=== PATIENT | male | born 1985 | race American Indian/Alaskan Native ===

== ENCOUNTER 2021-02-21 15:15 | Emergency (ER) | payer SELFPAY ==
--- OUTSIDE RECORDS SUMMARY | 2021-02-21 15:19 | XMS REPORT | Continuity of Care Document ---
:1985 Author Organization [facility] t Address [address] [place] [address] Care Team Providers Name Role Phone Unavailable Unavailable Unavailable Problems This patient has no known problems. Allergies, Adverse Reactions, Alerts This patient has no known allergies or adverse reactions. Medications This patient has no known medications. Procedures This patient has no known procedures. Results This patient has no known results.
[2021-02-21 15:59] LABS: Absolute Lymphocytes (CBC) 1.1 K/uL (0.7-4.9); Basophils % 0.8 % (0-1.3); Hematocrit 46.6 % (39.6-49.0); Lymphocytes % 25.3 % (15.3-44.8); RBC Red Blood Cell Count 5.27 M/uL (4.33-5.43)
[2021-02-21] MEDS ORDERED: ONDANSETRON 4 MG/2 ML VIAL ONE (16:12)
[2021-02-21] MEDS ORDERED: NA CHLORIDE 0.9% 1,000 ML ONE (16:13)
[2021-02-21] MEDS ORDERED: MEPERIDINE HCL 25 MG/ML SYR ONE (16:13)
[2021-02-21 16:20] LABS: ALT/SGPT 71 U/L (12-78); AST/SGOT 81 U/L (15-37); Albumin 3.7 g/dL (3.4-5.0); Alkaline Phosphatase 82 U/L (45-117); BUN Blood Urea Nitrogen 8 mg/dL (7-18); Bicarbonate 26 mmol/L (21-32); Bilirubin Direct 0.3 mg/dL (0-0.2); Bilirubin Total 0.9 mg/dL (0.2-1.0); Glucose Level 125 mg/dL (74-106); Lipase 84 U/L (73-393); Protein, Total 7.8 g/dL (6.4-8.2); Sodium Level 134 mmol/L (136-145)
[2021-02-21 16:21] LABS: Potassium 2.8 mmol/L (3.5-5.1)
--- NOTE | 2021-02-21 17:06 | RAD REPORT ---
EXAM DESCRIPTION: CT - Thoracic Spine W/o Cont - 02/21/2021 4:51 pm CLINICAL HISTORY: Radiculopathy. PAIN COMPARISON: No comparisons TECHNIQUE: Axial CT imaging through the thoracic spine was performed with coronal and sagittal re-fo rmatted images. All CT scans are performed using dose optimization technique as appropriate and may include automated exposure control or mA/KV adjustment according to patient size. FINDINGS: Vertebral body heights and disc spaces are maintained. A compression fracture is not prese nt. No significant disc space narrowing. Thoracic spine alignment is within normal limits. No paraspinal masses or hematoma. There is likely a significant disc bulge midthoracic spine. Stones are present in both kidneys withou t hydronephrosis. IMPRESSION: No acute thoracic spine abnormality is seen. Probable midthoracic disc herniation. Followup nonemergent MRI would be useful. Bilateral nephrolithiasis without hydronephrosis.
--- NOTE | 2021-02-21 17:10 | RAD REPORT ---
EXAM DESCRIPTION: CT - Spine Lumbar Wo Con - 02/21/2021 4:54 pm CLINICAL HISTORY: Radiculopathy. PAIN COMPARISON: No comparisons TECHNIQUE: Axial noncontrast CT imaging of the lumbar spine was performed with coronal and sagittal re-formatted images. All CT scans are performed using dose optimization technique as appropriate and may include automated exposure control or mA/KV adjustment according to patient size. FINDINGS: No acute lumbar spine fracture seen. No aggressive marrow pattern or malalignment. Paraspinal tissues are normal in thickness. No paraspinal abscess or hematoma seen. Prominent posterior disc bulges are present L4-5 and L5-S1. Bilateral nephrolithiasis without hydrone phrosis. IMPRESSION: No acute lumbar spine abnormality. Prominent disc bulges or herniations lower lumbar levels noted. Followup MRI would be helpful. Bilateral nephrolithiasis without hydronephrosis.
[2021-02-21] MEDS ORDERED: DIAZEPAM 10 MG/2 ML INJ SYRINGE ONE (18:02)
[2021-02-21] MEDS ORDERED: dexAMETHasone 10 MG/ML VIAL ONE (18:03)
[2021-02-21] MEDS ORDERED: KETOROLAC 30 MG/ML INJ ONE (18:03)
[2021-02-21] MEDS ORDERED: POTASSIUM 25 MEQ EFFERV TAB ONE (18:04)
[2021-02-21] MEDS ORDERED: KCL 20 MEQ/100 mL IVPB 20 MEQ/100 ML BAG IV ONE (18:04)
[2021-02-21] MEDS ORDERED: LIDOCAINE 4% PATCH ONE (18:19)
[2021-02-21 19:05] LABS: Urine Blood Negative (Negative); Urine Glucose Negative (Negative); Urine Protein 2+ (Negative); Urine Specific Gravity 1.015 (1.005-1.030); Urine pH >=9.0 (5.0-7.0)
[2021-02-21 20:03] LABS: Urine Bacteria <20 /HPF (NONE SEEN); Urine RBC NONE SEEN /HPF (NONE SEEN)
--- NOTE | 2021-02-21 20:09 | ER ---
Nurse's Notes [facility] Name: Ellis Townsend Age: 36 yrs Sex: Male : 1985 Arrival Date: 02/21/2021 Time: 15:18 Bed 6 Private MD: Diagnosis: Other intervertebral disc disorders, lumbosacral region;Hypokalemia Presentation: 02/21 15:31 Chief complaint: Low back pain that radiates to bilateral legs x 1 month. Pain became hb severe with intermittent numbness 2 days ago. Denies injury. Coronavirus screen: At this time, the client does not indicate any symptoms associated with coronavirus-19. Ebola Screen: No symptoms or risks identified at this time. Initial Sepsis Screen: Does the patient meet any 2 criteria? No. Patient's initial sepsis screen is negative. Does the patient have a suspected source of infection? No. Patient's initial sepsis screen is negative. Risk Assessment: Do you want to hurt yourself or someone else? Patient reports no desire to harm self or others. Onset of symptoms was January 2021. 15:31 Method Of Arrival: Wheelchair hb 15:31 Acuity: BAL 3 hb Historical: - Allergies: 15:34 No Known Allergies; hb - Immunization history:: Adult Immunizations up to date. - Social history:: Smoking status: Patient denies any tobacco usage or history of. Screenin:46 Abuse screen: Denies threats or abuse. Nutritional screening: No deficits noted. tw2 Tuberculosis screening: No symptoms or risk factors identified. Fall Risk None identified. Assessment: 15:57 General: Appears in no apparent distress. uncomfortable, Behavior is cooperative, tw2 appropriate for age, quiet. Pain: Complains of pain in back Pain radiates to right leg and left leg. Neuro: Level of Consciousness is awake, alert, obeys commands, Oriented to person, place, time, situation. Cardiovascular: Patient's skin is warm and dry. Respiratory: Airway is patent Respiratory effort is even, unlabored, Respiratory pattern is regular, symmetrical. GI: No signs and/or symptoms were reported involving the gastrointestinal system. : No signs and/or symptoms were reported regarding the genitourinary system. Musculoskeletal: Circulation, motion, and sensation intact. 16:26 Reassessment: Patient appears in no apparent distress at this time. No changes from tw2 previously documented assessment. Patient and/or family updated on plan of care and expected duration. Pain level reassessed. Patient is alert, oriented x 3, equal unlabored respirations, skin warm/dry/pink. 18:00 Reassessment: Patient appears in no apparent distress at this time. No changes from tw2 previously documented assessment. Patient and/or family updated on plan of care and expected duration. Pain level reassessed. Patient is alert, oriented x 3, equal unlabored respirations, skin warm/dry/pink. 18:01 Reassessment: pt remains uncomfortable d/t back pain. medicated as ordered. tw2 19:19 Reassessment: Patient appears in no apparent distress at this time. Reports back pain lp1 improved; Potassium continuing to infuse Patient states feeling better. 19:55 Reassessment: Provider aware of completion of Potassium infusion; Verbal order to lp1 repeat EKG. Vital Signs: 15:31 BP 138 / 104; Pulse 80; Resp 16; Temp 98.1; Pulse Ox 100% ; Weight 81.65 kg; Height 5 hb ft. 8 in. (172.72 cm); Pain 10/10; 16:27 BP 137 / 95; Pulse 81; Resp 17; Pulse Ox 97% on R/A; tw2 18:00 BP 138 / 104; Pulse 86; Resp 18; Pulse Ox 96% on R/A; tw2 19:15 BP 145 / 101; Pulse 79; Resp 18; Pulse Ox 96% on R/A; lp1 20:05 BP 132 / 97; Pulse 77; Resp 18; Pulse Ox 97% on R/A; lp1 15:31 Body Mass Index 27.37 (81.65 kg, 172.72 cm) hb ED Course: 15:18 Patient arrived in ED. rg4 15:23 Bed in low position. Call light in reach. Pulse ox on. NIBP on. Warm blanket given. tw2 15:25 Richy Ortega PA is PHCP. cp 15:25 Thierry Kimball MD is Attending Physician. cp 15:30 Tacos Leon, NICKI is Primary Nurse. ch5 15:34 Triage completed. hb 15:34 Arm band placed on. hb 15:53 Inserted saline lock: 20 gauge in right antecubital area, using aseptic technique. tw2 Blood collected. 16:21 Notified Nurse Practitioner and/or Physician Map And Chart Mounter of a critical lab result(s), 2.8 tw2 K. notified TATUM Kendrick. 16:51 CT Thoracic Spine Wo Cont In Process Unspecified. EDMS 16:54 CT Lumbar Spine Wo Con In Process Unspecified. EDMS 17:37 EKG done, by ED staff, reviewed by Richy WINN. dh3 19:06 Urine Microscopic Only Sent. dh3 19:19 No provider procedures requiring assistance completed. lp1 20:06 David Zendejas MD is Referral Physician. cp 20:22 IV discontinued, No redness/swelling at site. Pressure dressing applied. lp1 Administered Medications: 15:53 Drug: NS 0.9% 1000 ml Route: IV; Rate: 1 bolus; Site: right antecubital; tw2 17:35 Follow up: Response: No adverse reaction; IV Status: Completed infusion; IV Intake: tw2 1000ml 15:54 Drug: Zofran (Ondansetron) 4 mg Route: IVP; Site: right antecubital; tw2 17:36 Follow up: Response: No adverse reaction tw2 15:57 Drug: Demerol (meperidine) 25 mg {Note: rass 0.} Route: IVP; Site: right antecubital; tw2 17:36 Follow up: Response: No adverse reaction tw2 17:42 Drug: Potassium Effervescent Tablet 50 mEq Route: PO; tw2 19:04 Follow up: Response: No adverse reaction tw2 17:45 Drug: Ketorolac 15 mg Route: IVP; Site: right antecubital; tw2 19:03 Follow up: Response: No adverse reaction tw2 17:50 Drug: Decadron - Dexamethasone 10 mg Route: IVP; Site: right antecubital; tw2 19:03 Follow up: Response: No adverse reaction tw2 17:52 Drug: Diazepam 5 mg Route: IVP; Site: right antecubital; tw2 19:03 Follow up: Response: No adverse reaction; Pain is decreased tw2 17:53 Drug: Potassium Chloride 20 mEq Route: IV; Rate: calculated rate; Site: right tw2 antecubital; 19:55 Follow up: IV Status: Completed infusion; IV Intake: 100ml lp1 17:59 Drug: Lidoderm Patch 5 % (700 mg/patch) 1 patches {Note: low mid back.} Route: Topical; tw2 Site: affected area; Intake: 17:35 IV: 1000ml; Total: 1000ml. tw2 19:55 IV: 100ml; Total: 1100ml. lp1 Outcome: 20:08 Discharge ordered by . cp 20:22 Discharged to home ambulatory, with significant other. lp1 20:22 Condition: good 20:22 Discharge instructions given to patient, Instructed on discharge instructions, follow up and referral plans. medication usage, Demonstrated understanding of instructions, follow-up care, medications, Prescriptions given X 3. 20:23 Patient left the ED. lp1 Signatures: Dispatcher [employer] EDMS Anila Hernandez, RN RN lp1 Richy Ortega PA PA cp Baxter, Heather, RN RN Asia Loera RN RN tw2 Sarah Dotson 4 Isabelle Munroe 3 Tacos Leon, RN RN ch5
--- NOTE | 2021-02-21 20:09 | EDPHYS ---
Physician Documentation [facility] Name: Ellis Townsend Age: 36 yrs Sex: Male : 1985 Arrival Date: 02/21/2021 Time: 15:18 Bed 6 Private MD: ED Physician Thierry Kimball HPI: 02/21 15:45 This 36 yrs old Male presents to ER via Wheelchair with complaints of cp Back Pain. 15:45 The patient presents with pain exacerbation of chronic pain. cp 15:45 The symptoms are located in the low back. cp 15:45 Onset: The symptoms/episode began/occurred for years, became worse over past month and cp severe over past 2 days. The pain radiates to the right leg and left leg. Associated signs and symptoms: Pertinent positives: intermittent tingling and numbness of feet, Pertinent negatives: abdominal pain, chest pain, constipation, fever, incontinence, weakness. The problem was sustained from a chronic condition, the patient has known disc disease. Historical: - Allergies: 15:34 No Known Allergies; hb - Immunization history:: Adult Immunizations up to date. - Social history:: Smoking status: Patient denies any tobacco usage or history of. ROS: 15:50 Back: Positive for pain at rest, pain with movement, of the lumbar area, Negative for cp injury or acute deformity. 15:50 Constitutional: Negative for body aches, chills, fever. cp 15:50 Neck: Negative for pain with movement, pain at rest, stiffness. 15:50 Cardiovascular: Negative for chest pain, palpitations. 15:50 Respiratory: Negative for cough, shortness of breath, wheezing. 15:50 Abdomen/GI: Negative for abdominal pain, nausea, vomiting, and diarrhea, bowel incontinence. 15:50 : Negative for urinary symptoms, difficulty urinating, bladder incontinence, testicular pain 15:50 Neuro: Negative for altered mental status, numbness, weakness. 15:50 All other systems are negative. Exam: 15:55 Constitutional: The patient appears in no acute distress, alert, awake, cp non-diaphoretic, non-toxic, well developed, well nourished, obese, uncomfortable. 15:55 Head/Face: Normocephalic, atraumatic. cp 15:55 Neck: ROM/movement: is normal, is supple, without pain, no range of motions limitations. 15:55 Chest/axilla: Inspection: normal, Palpation: is normal, no crepitus, no tenderness. 15:55 Cardiovascular: Rate: normal, Rhythm: regular, Edema: is not appreciated, JVD: is not appreciated. 15:55 Respiratory: the patient does not display signs of respiratory distress, Respirations: normal, no use of accessory muscles, no retractions, labored breathing, is not present. 15:55 Abdomen/GI: Inspection: abdomen appears normal, Bowel sounds: active, all quadrants, Palpation: abdomen is soft and non-tender, in all quadrants. 15:55 Back: pain, that is severe, of the lumbar area and lower thoracic area, ROM is painful, with all movement, Straight leg raises: pain bilaterally. 15:55 Neuro: Motor: moves all fours, strength is normal, Sensation: no obvious gross deficits, Deep tendon reflexes are 2+ (normal) in the right patellar, right Achilles, left patellar and left Achilles. 17:40 ECG was reviewed by the Attending Physician. cp 20:07 ECG was reviewed by the Attending Physician. cp Vital Signs: 15:31 BP 138 / 104; Pulse 80; Resp 16; Temp 98.1; Pulse Ox 100% ; Weight 81.65 kg; Height 5 hb ft. 8 in. (172.72 cm); Pain 10/10; 16:27 BP 137 / 95; Pulse 81; Resp 17; Pulse Ox 97% on R/A; tw2 18:00 BP 138 / 104; Pulse 86; Resp 18; Pulse Ox 96% on R/A; tw2 19:15 BP 145 / 101; Pulse 79; Resp 18; Pulse Ox 96% on R/A; lp1 20:05 BP 132 / 97; Pulse 77; Resp 18; Pulse Ox 97% on R/A; lp1 15:31 Body Mass Index 27.37 (81.65 kg, 172.72 cm) hb MDM: 15:36 Patient medically screened. cp 16:00 Differential diagnosis: ruptured disc, spinal injury, bulging disc, spinal stenosis, cp cauda equina. 20:07 Data reviewed: vital signs, nurses notes, lab test result(s), EKG, radiologic studies, cp CT scan, and as a result, I will discharge patient. 20:07 Counseling: I had a detailed discussion with the patient and/or guardian regarding: the cp historical points, exam findings, and any diagnostic results supporting the discharge/admit diagnosis, lab results, radiology results, the need for outpatient follow up, for definitive care, a neurosurgeon, to return to the emergency department if symptoms worsen or persist or if there are any questions or concerns that arise at home. 20:07 Response to treatment: the patient's symptoms have markedly improved after treatment, cp VSS. Pain markedly improved. Will discharge to home for continued monitoring. 02/21 15:37 Order name: Basic Metabolic Panel; Complete Time: 17:21 cp 02/21 17:22 Interpretation: Normal except: NA 134; K 2.8; CL 96; GLUC 125. cp 02/21 15:37 Order name: CBC with Diff; Complete Time: 17:21 cp 02/21 15:37 Order name: Hepatic Function; Complete Time: 17:21 cp 02/21 15:37 Order name: Lipase; Complete Time: 17:21 cp 02/21 15:37 Order name: Urine Microscopic Only; Complete Time: 20:05 cp 02/21 19:05 Order name: Urine Dipstick-Ancillary; Complete Time: 20:05 EDMS 02/21 16:08 Order name: CT Thoracic Spine Wo Cont; Complete Time: 17:21 cp 02/21 16:08 Order name: CT Lumbar Spine Wo Con; Complete Time: 17:21 cp 02/21 15:37 Order name: IV Saline Lock; Complete Time: 15:57 cp 02/21 15:37 Order name: Labs collected and sent; Complete Time: 15:57 cp 02/21 15:37 Order name: Urine Dipstick-Ancillary (obtain specimen); Complete Time: 19:05 cp 02/21 17:22 Order name: EKG; Complete Time: 17:22 cp 02/21 17:22 Order name: EKG - Nurse/Tech; Complete Time: 17:36 cp 02/21 19:56 Order name: EKG - Nurse/Tech; Complete Time: 20:04 lp1 EC:40 Rate is 98 beats/min. Rhythm is regular. KY interval is normal. QRS interval is normal. cp QT interval is normal. T waves are Inverted in leads III, aVR. Interpreted by me. Reviewed by me. 20:07 Rate is 79 beats/min. Rhythm is regular. [place] interval is normal. QRS interval is normal. cp QT interval is normal. T waves are Inverted in leads III, aVR. Interpreted by me. Reviewed by me. Administered Medications: 15:53 Drug: NS 0.9% 1000 ml Route: IV; Rate: 1 bolus; Site: right antecubital; tw2 17:35 Follow up: Response: No adverse reaction; IV Status: Completed infusion; IV Intake: tw2 1000ml 15:54 Drug: Zofran (Ondansetron) 4 mg Route: IVP; Site: right antecubital; tw2 17:36 Follow up: Response: No adverse reaction tw2 15:57 Drug: Demerol (meperidine) 25 mg {Note: rass 0.} Route: IVP; Site: right antecubital; tw2 17:36 Follow up: Response: No adverse reaction tw2 17:42 Drug: Potassium Effervescent Tablet 50 mEq Route: PO; tw2 19:04 Follow up: Response: No adverse reaction tw2 17:45 Drug: Ketorolac 15 mg Route: IVP; Site: right antecubital; tw2 19:03 Follow up: Response: No adverse reaction tw2 17:50 Drug: Decadron - Dexamethasone 10 mg Route: IVP; Site: right antecubital; tw2 19:03 Follow up: Response: No adverse reaction tw2 17:52 Drug: Diazepam 5 mg Route: IVP; Site: right antecubital; tw2 19:03 Follow up: Response: No adverse reaction; Pain is decreased tw2 17:53 Drug: Potassium Chloride 20 mEq Route: IV; Rate: calculated rate; Site: right tw2 antecubital; 19:55 Follow up: IV Status: Completed infusion; IV Intake: 100ml lp1 17:59 Drug: Lidoderm Patch 5 % (700 mg/patch) 1 patches {Note: low mid back.} Route: Topical; tw2 Site: affected area; Disposition: 20:15 Chart complete. cp 02/22 07:06 Co-signature as Attending Physician, Thierry Kimball MD I agree with the assessment and rn plan of care. Attestation: The patient's history, exam findings, diagnostics, and a summary of any interventions or procedures was reviewed in detail with Richy WINN. Disposition Summary: 02/21/21 20:08 Discharge Ordered Location: Home cp Problem: an ongoing problem cp Symptoms: have improved cp Condition: Stable cp Diagnosis - Other intervertebral disc disorders, lumbosacral region cp - Hypokalemia cp Followup: cp - With: David Zendejas MD - When: 1 week - Reason: Recheck today's complaints Discharge Instructions: - Discharge Summary Sheet cp - Potassium Content of Foods cp - Herniated Disk cp - Hypokalemia cp Forms: - Medication Reconciliation Form cp - Thank You Letter cp - Antibiotic Education cp - Prescription Opioid Use cp - Work release form lp1 Prescriptions: - Lidoderm 5 % Topical adhesive patch,medicated - apply 1 patch by TRANSDERMAL route once daily; 1 box; Refills: 0, Product cp Selection Permitted - Cyclobenzaprine 10 mg Oral Tablet - take 1 tablet by ORAL route every 8 hours As needed; 20 tablet; Refills: 0, cp Product Selection Permitted - Medrol (Franco) 4 mg Oral Tablets, Dose Pack - take 1 tablet by ORAL route as directed - follow package instructions; 1 cp packet; Refills: 0, Product Selection Permitted Signatures: Dispatcher [employer] EDThierry Coleman MD MD rn Pena, Laura RN RN lp1 Richy Ortega PA PA cp Alem Rees, RN RN Asia Loera RN RN tw2
[2021-02-21 20:28] VITALS: TEMP 98.1
[2021-02-21 20:34] VITALS: BP 132/97; O2SAT 97
== END 2021-02-21 20:23 | disposition home or self-care (01) ==
LOC: ER 15:15
DX: M51.87 Other intervertebral disc disorders, lumbosacral region (principal); E87.6 Hypokalemia
CPT/HCPCS: 36415; 72128; 72131; 80048; 80076; 81003; 81015; 83690; 85025; 93005; 96361; 96365; 96366; 96375; 99284; J1100; J2175; J2405; J3360; J3480; J7030